=== PATIENT | male | born 1945 | race African-American/Black ===

== ENCOUNTER 2020-12-30 17:27 | Emergency (ER) | payer OTHER, MEDICARE ==
[~2020-12-30] VITALS: Ht 190.5 cm; Wt 103.6 kg
[~2020-12-30 17:27] MED LIST: ASPI-630 PO; CIPR500T94 PO; HYDR-2678 PO; HYDR12.572 PO; LISI-517 PO; LISI2.5T12 PO; METF500T16 PO; PHEN100T82 PO; VIT1TABL2 PO; VITAMIN D PO
[2020-12-30] MEDS ORDERED: ONDANSETRON PF 4 MG/2 ML VIAL. IVP ONE (18:15)
[2020-12-30] MEDS ORDERED: KETOROLAC 30 MG/ML VIAL. IVP ONE (18:15)
[2020-12-30] MEDS ORDERED: FAMOTIDINE 20 MG/2 ML VIAL IVP ONE (18:15)
[2020-12-30] MEDS ORDERED: IV RINGERS SOLUTION,LACTATED 1,000 ML IV SCH (18:15)
--- NOTE | 2020-12-30 18:17 | PHYS DOC ---
Past History Past Medical History: Diabetes, Hypertension, Kidney Stones Past Surgical History: Appendectomy, Cholecystectomy, Other Additional Past Surgical Histo: colon resection Alcohol Use: None Drug Use: None General Adult EDM: Chief Complaint: ABDOMINAL PAIN HPI: HPI: ".. I ve been having abdomen pain the last couple days.. More here in lower and Lt.. It not gotten any better.. " ... 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 Patient denies any bad food intake. Last ate a full meal this morning for breakfast. Patient denies any recent travel. No specific ill contacts. Review of Systems: Review of Systems: Constitutional: Denies fever or chills Eyes: Denies change in visual acuity HENT: Denies nasal congestion or sore throat Respiratory: Denies cough or shortness of breath Cardiovascular: Denies chest pain or edema GI: Denies abdominal pain, nausea, vomiting, bloody stools or diarrhea : Denies dysuria Musculoskeletal: Denies back pain or joint pain Integument: Denies rash Neurologic: Denies headache, focal weakness or sensory changes Endocrine: Denies polyuria or polydipsia Lymphatic: Denies swollen glands Psychiatric: Denies depression or anxiety Allergies: Allergies: Allergies Coded Allergies Type Severity Reaction Last Updated Verified No Known Drug Allergies 02/01/14 No Physical Exam: PE: Constitutional: Well developed, well nourished, no acute distress, non-toxic appearance. [] HENT: Normocephalic, atraumatic, bilateral external ears normal, oropharynx moist, no oral exudates, nose normal. [] Eyes: PERRLA, EOMI, conjunctiva normal, no discharge. [] Neck: Normal range of motion, no tenderness, supple, no stridor. [] Cardiovascular:Heart rate regular rhythm, no murmur [] Lungs & Thorax: Bilateral breath sounds clear to auscultation [] Abdomen: Bowel sounds normal, soft, no tenderness, no masses, no pulsatile masses. [] Skin: Warm, dry, no erythema, no rash. [] Back: No tenderness, no CVA tenderness. [] Extremities: No tenderness, no cyanosis, no clubbing, ROM intact, no edema. [] Neurologic: Alert and oriented X 3, normal motor function, normal sensory f unction, no focal deficits noted. [] Psychologic: Affect normal, judgement normal, mood normal. [] Current Patient Data: Vital Signs: Vital Signs Date Time Temp Pulse Resp B/P (MAP) Pulse Ox O2 Delivery O2 Flow Rate FiO2 12/30/20 17:48 98.7 96 18 103/67 97 EKG: EKG: [] Radiology/Procedures: Radiology/Procedures: [][place] [address] IMAGING REPORT Signed PATIENT: TRELL APARICIO JACCOUNT: [id number] : 1945 LOCATION: ER AGE: 75 SEX: M EXAM STATUS: REG ER ORD. PHYSICIAN: KAN GREENE MD REASON: abdomen pain HX: COLON RESECTION, APPENDECTOMY, CHOLECYSTECTOMY PROCEDURE: ACUTE ABDOMEN SERIES Exam: Acute abdominal series INDICATION: Abdominal pain TECHNIQUE: Frontal view of the chest with upright and supine views of the abdomen Comparisons: None FINDINGS: The cardiomediastinal silhouette and pulmonary vessels are within normal limits. The lung and pleural spaces are clear. Air and stool are noted throughout the colon to level the rectum in a nonobstructive bowel gas pattern. There is a 8 mm rounded calcification projecting over the mid left renal shadow. Visualized osseous structures are unremarkable. IMPRESSION: 1. No acute cardiopulmonary process. 2. Findings which could relate to left-sided nephrolithiasis. 3. Nonobstructive bowel gas pattern. Electronically signed by: Елена Arreola MD (12/30/2020 8:25 PM) [facility] DICTATED AND SIGNED BY: ЕЛЕНА ARREOLA MD DATE: 12/30/202022 CC: BRETT RAPHAEL MD; KAN GREENE MD ~MTH0 0 Heart Score: Risk Factors: Risk Factors: DM, Current or recent (<one month) smoker, HTN, HLP, family history of CAD, obesity. Risk Scores: Score 0 - 3: 2.5% MACE over next 6 weeks - Discharge Home Score 4 - 6: 20.3% MACE over next 6 weeks - Admit for Clinical Observation Score 7 - 10: 72.7% MACE over next 6 weeks - Early Invasive Strategies Course & Med Decision Making: Course & Med Decision Making Pertinent Labs and Imaging studies reviewed. (See chart for details) [] Dragon Disclaimer: Dragon Disclaimer: This electronic medical record was generated, in whole or in part, using a voice recognition dictation system. Departure Departure: Referrals: BRETT RAPHAEL MD (PCP) KAN GREENE MD Dec 30, 2020 18:17
[2020-12-30 18:31] LABS: BASO # 0.2 x10^3/uL (0.0-0.2); BASO % 3 % (0-3); EOS # 0.5 x10^3/uL (0.0-0.7); EOS % 5 % (0-3); HEMOGLOBIN 14.6 g/dL (13.0-17.5); LYMPH # 4.3 x10^3/uL (1.0-4.8); LYMPH % 46 % (24-48); MEAN CORPUSCULAR HEMOGLOBIN 30 pg (25-35); MEAN CORPUSCULAR HGB CONC 33 g/dL (31-37); MEAN CORPUSCULAR VOLUME 92 fL (79-100); MONO # 0.7 x10^3/uL (0.0-1.1); MONO % 8 % (0-9); NEUT # 3.6 x10^3uL (1.8-7.7); NEUT % 38 % (31-73); PLATELET COUNT 306 x10^3/uL (140-400); RED CELL DISTRIBUTION WIDTH 14.4 % (11.5-14.5); WHITE BLOOD COUNT 9.3 x10^3/uL (4.0-11.0)
[2020-12-30 18:41] LABS: BACTERIA,URINE 0 /HPF (0-FEW); BILIRUBIN,URINE NEG (NEG); CLARITY,URINE CLEAR; COLOR,URINE YELLOW; GLUCOSE,URINE >=1000 mg/dL (NEG); NITRITE,URINE NEG (NEG); RBC,URINE 0 /HPF (0-2); SQUAMOUS EPITHELIAL CELL,UR FEW /LPF; UROBILINOGEN,URINE 0.2 mg/dL (0.2 mg/dL); WBC,URINE 0 /HPF (0-4)
--- NOTE | 2020-12-30 20:28 | RAD ---
Exam: Acute abdominal series INDICATION: Abdominal pain TECHNIQUE: Frontal view of the chest with upright and supine views of the abdomen Comparisons: None FINDINGS: The cardiomediastinal silhouette and pulmonary vessels are within normal limits. The lung and pleural spaces are clear. Air and stool are noted throughout the colon to level the rectum in a nonobstructive bowel gas patter n. There is a 8 mm rounded calcification projecting over the mid left renal shadow. Visualized osseous structures are unremarkable. IMPRESSION: 1. No acute cardiopulmonary process. 2. Findings which could relate to left-sided nephrolithiasis. 3. Nonobstructive bowel gas pattern. Electronically signed by: Елена Espinoza MD (12/30/2020 8:25 PM) [facility]
[2020-12-30 20:49] LABS: CALCIUM 8.5 mg/dL (8.5-10.1); CREATININE 1.2 mg/dL (0.7-1.3); GFR 71.8; POTASSIUM 4.1 mmol/L (3.5-5.1)
[2020-12-30 20:55] LABS: ALBUMIN 3.5 g/dL (3.4-5.0); DIRECT BILIRUBIN 0.2 mg/dL (0.0-0.2); TOTAL BILIRUBIN 0.5 mg/dL (0.2-1.0); TOTAL PROTEIN 6.4 g/dL (6.4-8.2)
--- NOTE | 2020-12-30 21:37 | EKG ---
[address] [address] Test Date: 2020-12-30 Test Time: 18:54:41 Pat Name: TRELL CHUAMoBert Department: Room: Gender: M Senior Sales Consultant: : 1945 Requested By: KAN GREENE Order Number: [id number] Reading MD: Measurements Intervals [place] Rate: 68 P: 42 [place]: 200 QRS: -22 QRSD: 90 T: 30 QT: 360 QTc: 387 Interpretive Statements SINUS RHYTHM LEFTWARD AXIS OTHERWISE NORMAL ECG RI6.02 No previous ECG available for comparison
--- NOTE | 2020-12-31 00:03 | RAD ---
EXAMINATION: CT abdomen and pelvis without IV contrast. INDICATION:75 years, Male, left flank pain, history of kidney stone. TECHNIQUE: Axial CT images of the abdomen and pelvis were obtained. Coronal and sagittal reformatted performed. COMPARISON: 01/26/2014. Exposure: One or more of the following individualized dose reduction techniques were utilized for thi s examination: 1. Automated exposure control 2. Adjustment of the mA and/or kV according to patient size 3. Use of iterative reconstruction technique. FINDINGS: LOWER CHEST: Dependent subsegmental atelectasis in bibasilar lungs. ABDOMEN/PELVIS: Within the limitation of noncontrast exam, Left worst than right, multifocal renal cortical scarring/thinning. There is 1.1 cm nonobstructing ca lculus in the left kidney. No hydronephrosis in either kidney. No right nephrolithiasis. Simple appea ring 4.2 cm upper pole left renal cyst. Subcentimeter hypodensities in both renal cortices, too small to characterize. Simple appearing 2.0 cm interpolar right renal cyst. Unremarkable urinary bladder. Diffuse hepatic steatosis. No discrete focal hepatic lesion. Cholecystectomy. No biliary ductal dilat ion. Spleen and pancreas. No adrenal nodule. No bowel obstruction or wall thickening. Right hemicolec tisha changes. No pneumoperitoneum or ascites. Normal caliber abdominal aorta. No lymphadenopathy in t he abdomen or pelvis by size criteria. Unremarkable prostate. MUSCULOSKELETAL: Small fat-containing left inguinal hernia. Postsurgical changes along the anterior abdominal wall. No acute osseous process. Multilevel changes in the lumbar spine. IMPRESSION: 1. A 1.1 cm nonobstructing left nephrolithiasis. No obstructive uropathy in either kidney. 2. Bilateral renal cysts. 3. Diffuse hepatic steatosis. Electronically signed by: Shiv Cristobal MD (12/31/2020 12:00 AM) [facility]
[2020-12-31] MEDS ORDERED: HYDR-1179 PO (00:31)
[2020-12-31] MEDS ORDERED: ONDA4TAB7 PO (00:31)
[2020-12-31 00:36] VITALS: BP 118/67
== END 2020-12-31 00:50 | disposition home or self-care (01) ==
LOC: ER 17:27
DX: R10.32 Left lower quadrant pain (principal); E11.9 Type 2 diabetes mellitus without complications; I10 Essential (primary) hypertension; Z87.442 Personal history of urinary calculi; Z90.49 Acquired absence of other specified parts of digestive tract
CPT/HCPCS: 36415; 74022; 74176; 80048; 80076; 81001; 82150; 82550; 83690; 84484; 85025; 93005; 96361; 96374; 96375; 99285; J1885; J2405; J3490; J7120